=== PATIENT | female | born 1985 | race Caucasian/White ===

== ENCOUNTER 2023-04-18 10:19 | Emergency (ER) | payer OTHER, SELFPAY ==
--- NOTE | ~2023-04-18 | XR_ITS ---
XR foot LT min 3V DATE: 04/18/2023 10:54 INDICATION: Fell backwards on 04/17/2023. Injury and pain at third through fifth toes TECHNIQUE: 4 views COMPARISON: None FINDINGS: Mild plantar calcaneal enthesopathy. No fracture, dislocation, periosteal reaction or bone destruction is detected. IMPRESSION: Mild plantar calcaneal enthesopathy No fracture or dislocation Reviewed, dictated and finalized at location A.
--- NOTE | 2023-04-18 10:29 | ED.LOWEXIN ---
HPI - Extremity Injury (Lower) General Chief Complaint: Extremity Injury, Lower Stated Complaint: lt foot inj Time Seen by Provider: 04/18/23 10:29 Source: patient and RN notes reviewed History of Present Illness HPI Narrative: Patient is a 37-year-old female presents to the Urgent Care with complaints of left foot pain. Patient states that she was trying to switch out a air-conditioner window unit and tripped over her own feet holding the air conditioner. Patient has placed an Amrit wrap on the foot has been ambulating with a shoe. No other acute complaints or injuries. No acute distress noted. Patient aware of plan care. Some parts of this dictation were generated by voice recognition software and may contain typographical and/or grammatical inaccuracies. Related Data Home Medications Medication Instructions Recorded Confirmed benralizumab 30 mg/mL subcutaneous mg subcut 04/18/23 syringe (Fasenra) fluoxetine 10 mg capsule mg 04/18/23 fluticasone fur. 200 mcg-umeclid inhalation 04/18/23 62.5 mcg-vilant 25 mcg inhalat.powder (Trelegy Ellipta) rosuvastatin 5 mg tablet mg 04/18/23 Allergies Allergy/AdvReac Type Severity Reaction Status Date / Time azithromycin [From Zithromax] Allergy Unknown Verified 04/18/23 10:44 tramadol Allergy Unknown Verified 04/18/23 10:44 TB SKIN TEST Allergy Unknown Unknown Uncoded 04/18/23 10:43 Review of Systems Review of Systems: CONSTITUTIONAL: Denies fever, chills, or sweats. EYES: Denies visual changes, redness, or discharge. ENT: Denies rhinorrhea, congestion, sore throat, or otalgia. CARDIOVASCULAR: Denies chest pain, palpitations, or edema. RESPIRATORY: Denies cough or dyspnea. GASTROINTESTINAL: Denies abdominal pain, nausea, vomiting, or diarrhea. GENITOURINARY: Denies dysuria or hematuria. SKIN: Denies rash or itching. MUSCULOSKELETAL: Reports of left foot pain NEUROLOGIC: Denies headache, numbness, or weakness. All other systems reviewed are negative, except as documented in HPI. PMFSH Comments At the time of my signature, I reviewed and agree with the nursing past medical, surgical, social, and family history. There is no relevant family history pertinent to the patient complaint. Exam Narrative: GENERAL: This is a well-nourished, well-developed patient, in no apparent distress. HEAD: normocephalic, atraumatic. EYES: PERRL. Sclera clear/white. Vision is grossly intact. EARS: External ears normal NOSE: External nose normal with no obvious nasal discharge, nares without redness, no rhinorrhea. THROAT: Mucous membranes moist, NECK: Neck supple, SKIN: warm, intact with no suspicious lesions or rash, good texture and turgor. NEURO: awake, alert, and oriented to person, place and time. There were no obvious focal neurologic abnormalities. EXTREMITIES: Positive strong left pedal pulse with capillary refill less than 2 seconds. Range of motion left ankle within normal limits. Pain exacerbated on weight-bearing/ambulation. No obvious deformity, ecchymosis, edema or erythema to the left lower extremity. Kegt-in-hwzozjgb tenderness over the dorsal lateral aspect of the left foot Course Course Level of Care: Express Care Visit Vital Signs Vital signs: Vital Signs Temperature 98.3 F 04/18/23 10:46 Pulse Rate 89 04/18/23 10:46 Respiratory Rate 16 04/18/23 10:46 Blood Pressure 146/80 H 04/18/23 10:46 Pulse Oximetry 100 04/18/23 10:46 Oxygen Delivery Room Air 04/18/23 10:46 Temperature 98.3 F 04/18/23 10:46 Pulse Rate 89 04/18/23 10:46 Respiratory Rate 16 04/18/23 10:46 Blood Pressure 146/80 H 04/18/23 10:46 Pulse Oximetry 100 04/18/23 10:46 Oxygen Delivery Room Air 04/18/23 10:46 Reviewed- Patient is informed that they may have pre-hypertension or hypertension based on a blood pressure reading in the department. I recommend the patient call the primary care provider listed on their discharge instructions or
[2023-04-18 10:46] VITALS: BP 146/80; PULSE 89; RESP 16; TEMP 36.8; O2SAT 100
== END 2023-04-18 11:13 | disposition home or self-care (01) ==
PROVIDERS: Emergency Provider Nurse Practitioner Family; PCP Family Medicine
DX: M79.672 Pain in left foot (principal)
CPT/HCPCS: 73630; 99203; G0463